=== PATIENT | male | born 1990 | race Caucasian/White ===

== ENCOUNTER → 2019-07-12 | Outpatient (CLI) | payer BC ==
[2019-07-15 10:16] LABS: HERPES SIMPLEX TYPE 1 IGG <0.01 Index (()); HERPES SIMPLEX TYPE 1 IGG INTP Negative (Negative); HERPES SIMPLEX TYPE 2 IGG 0.18 Index (())
== END ==
LOC: LAB 15:19
PROVIDERS: Family Medicine
DX: L73.9 Follicular disorder, unspecified (principal); R23.4 Changes in skin texture